=== PATIENT | female | born 1995 | race Caucasian/White ===

== ENCOUNTER → 2020-02-10 | Outpatient (CLI) | payer BC ==
[2020-02-10 14:59] LABS: BASO # 0.1 x10^3/uL (0.0-0.2); BASO % 1 % (0-3); EOS # 0.1 x10^3/uL (0.0-0.7); EOS % 1 % (0-3); HEMATOCRIT 36.9 % (36.0-47.0); HEMOGLOBIN 11.9 g/dL (12.0-15.5); LYMPH # 1.5 x10^3/uL (1.0-4.8); LYMPH % 33 % (24-48); MEAN CORPUSCULAR HEMOGLOBIN 27 pg (25-35); MEAN CORPUSCULAR HGB CONC 32 g/dL (31-37); MEAN CORPUSCULAR VOLUME 82 fL (79-100); MONO # 0.2 x10^3/uL (0.0-1.1); MONO % 5 % (0-9); NEUT # 2.7 x10^3uL (1.8-7.7); NEUT % 59 % (31-73); PLATELET COUNT 279 x10^3/uL (140-400); RED BLOOD COUNT 4.49 x10^6/uL (3.50-5.40); RED CELL DISTRIBUTION WIDTH 14.7 % (11.5-14.5); WHITE BLOOD COUNT 4.6 x10^3/uL (4.0-11.0)
[2020-02-10 15:03] LABS: ALBUMIN/GLOBULIN RATIO 1.2 (1.0-1.7); CALCIUM 8.4 mg/dL (8.5-10.1); CREATININE 0.5 mg/dL (0.6-1.0); GFR 150.3; POTASSIUM 3.9 mmol/L (3.5-5.1); TOTAL BILIRUBIN 0.4 mg/dL (0.2-1.0); TOTAL PROTEIN 7.4 g/dL (6.4-8.2)
[2020-02-11 01:11] LABS: HEMOGLOBIN A1C 5.3 % (4.8-5.6)
[2020-02-11 14:33] LABS: THYROID STIM HORMONE (TSH) 3.524 uIU/mL (0.358-3.740)
== END ==
LOC: LAB 14:26
PROVIDERS: ATTEND Nurse Practitioner Women's Health
DX: Z01.419 Encounter for gynecological examination (general) (routine) without abnormal findings (principal)
CPT/HCPCS: 36415; 80053; 80061; 83036; 84443; 85025

== ENCOUNTER 2021-04-18 19:01 | Emergency (ER) | payer BC, OTHER ==
[~2021-04-18] VITALS: Ht 160 cm; Wt 48.6 kg
--- NOTE | 2021-04-18 19:45 | PHYS DOC ---
General Adult HPI: HPI: Patient is a 25-year-old female who presents to the emergency department stating "I am 99% sure I have a UTI". Patient is reporting dysuria, urinary frequency, urgency, nausea. Patient reports that she started her menstrual cycle on and she "did things that she does not normally do" sexually on Sunday and she is concerned that that caused her to have a urinary tract infection. Patient denies vomiting, fevers. Review of Systems: Review of Systems: Constitutional: See HPI GI: See HPI : See HPI Physical Exam: PE: Constitutional: Well developed, well nourished, no acute distress, non-toxic appearance. [] HENT: Normocephalic, atraumatic, bilateral external ears normal, oropharynx moist, no oral exudates, nose normal. [] Eyes: PERRL, EOMI, conjunctiva normal, no discharge. [] Neck: Normal range of motion, no stridor Cardiovascular:Heart rate regular rhythm, no murmur [] Lungs & Thorax: Bilateral breath sounds clear to auscultation [] Abdomen: Bowel sounds normal, soft, no tenderness, no masses, no pulsatile masses. [] Skin: Warm, dry, no erythema, no rash. [] Back: No tenderness, mild bilateral CVA tenderness Extremities: No tenderness, no cyanosis, no clubbing, ROM intact, no edema. [] Neurologic: Alert and oriented X 3, normal motor function, normal sensory function, no focal deficits noted. [] Psychologic: Affect normal, judgement normal, mood normal. [] Current Patient Data: Labs: Laboratory Tests Test 04/18/21 19:19 04/18/21 19:38 Bedside Urine HCG, Qualitative hcg negative Urine Collection Type Clean catch Urine Color Brown Urine Clarity Turbid Urine pH 6.0 Urine Specific [place] >=1.030 Urine Protein >100 mg/dl Urine Glucose (UA) Neg mg/dL Urine Ketones (Stick) Trace mg/dL Urine Blood Large Urine Nitrite Pos Urine Bilirubin Mod Urine Urobilinogen Dipstick 1.0 mg/dL Urine Leukocyte Esterase Trace Urine RBC Tntc /HPF Urine WBC 20-40 /HPF Urine Squamous Epithelial Cells Mod /LPF Urine Bacteria Many /HPF EKG: EKG: [] Radiology/Procedures: Radiology/Procedures: [] Heart Score: C/O Chest Pain: N/A Risk Factors: Risk Factors: DM, Current or recent (<one month) smoker, HTN, HLP, family history of CAD, obesity. Risk Scores: Score 0 - 3: 2.5% MACE over next 6 weeks - Discharge Home Score 4 - 6: 20.3% MACE over next 6 weeks - Admit for Clinical Observation Score 7 - 10: 72.7% MACE over next 6 weeks - Early Invasive Strategies Course & Med Decision Making: Course & Med Decision Making Pertinent Labs and Imaging studies reviewed. (See chart for details) [] Patient presents to the emergency department today for dysuria, urinary frequency and urgency that started yesterday. Urinalysis was performed that showed nitrate positive infection. Patient will be treated for pyelonephritis as she does have CVA tenderness, nausea and findings of cystitis. Patient a dvised to increase fluids and avoid bladder irritants. Patient will be discharged home with Pyridium. I discussed with patient all findings and diagnostic testing as well as the need to follow-up with PCP for further evaluation and treatment or return to the ER if any new or worsening symptoms. Strict return precautions were also discussed at length. Patient voiced understanding and agreement with the plan. Patient is hemodynamically stable at the time of disposition. Dragon Disclaimer: [email or web address] Disclaimer: This electronic medical record was generated, in whole or in part, using a voice recognition dictation system. Departure Departure: Impression: Primary Impression: Pyelonephritis Disposition: 01 HOME / SELF CARE / HOMELESS Condition: GOOD Referrals: JUNIOR TERRELL (PCP) Patient Instructions: Pyelonephritis, Adult Additional Instructions: You are seen in the emergency department today for urinary symptoms. You do have an infection and will be treated with an antibiotic. Please start and finish it completely. Increase your fluids and avoid bladder irritants like caffeine, sugary beverages or alcohol. You are also being discharged home with a medication called Pyridium which will help with the dysuria symptoms. This medication may cause orange discoloration of your urine. Follow-up with your primary care provider tomorrow regarding your ER visit. Return to the emergency department if you develop worsening of your pain, abdominal pain, intractable nausea or vomiting, high fevers refractory to treatment, blood in your stools or vomit. Scripts Phenazopyridine Hcl (PYRIDIUM) 100 Mg Tablet 1 TAB PO TID for urinary discomfort for 2 Days, #6 TAB 0 Refills Prov: MONET THOMAS APRN 04/18/21 Cefdinir (CEFDINIR) 300 Mg Capsule 1 CAP PO BID for infection for 14 Days, #28 CAP 0 Refills Prov: MONET THOMAS APRN 04/18/21 MONET THOMAS APRN Apr 18, 2021 19:45
[2021-04-18 20:35] LABS: CLARITY,URINE TURBID; COLOR,URINE BROWN; GLUCOSE,URINE NEG (NEG)
[2021-04-18 20:36] LABS: BACTERIA,URINE MANY /HPF (0-FEW); NITRITE,URINE POS (NEG); RBC,URINE TNTC /HPF (0-2); SQUAMOUS EPITHELIAL CELL,UR MOD /LPF; WBC,URINE 20-40 /HPF (0-4)
[2021-04-18] MEDS ORDERED: PHEN100T82 PO (20:41)
[2021-04-18] MEDS ORDERED: CEFD300C PO (20:41)
[2021-04-18 20:49] VITALS: BP 126/80
== END 2021-04-18 20:51 | disposition home or self-care (01) ==
LOC: ER 19:01
DX: N12 Tubulo-interstitial nephritis, not specified as acute or chronic (principal)
CPT/HCPCS: 81001; 81025; 87077; 87086; 87186; 99283